=== PATIENT | female | born 1995 | race African-American/Black ===

== ENCOUNTER 2018-01-08 02:22 | Inpatient (IN) ==
[2018-01-08 02:46] LABS: Apearance,Urine Slightly Hazy (Clear); Bacteria,Urine Occasional /HPF (Few); Bilirubin,Urine Negative (Negative); Blood, Urine Small mg/dL (Negative); Glucose,Urine (UA) Negative (Negative); Ketones,Urine 20 mg/dL (Negative); Mucus,Urine Occasional /LPF (Occasional); Nitrite,Urine Negative (Negative); Protein,Urine Negative; RBC,Urine <1 /HPF (0-4); Squamous Epithelial Cell,Urine Occasional /HPF (0-10); Urine Color Yellow (Yellow); Urine Specific Gravity 1.013 (1.001-1.035); Urine Urobilinogen < 2.0 EU/DL (0.2-1.0); WBC,Urine 2 /HPF (0-6)
[2018-01-08] MEDS ORDERED: MEPERIDINE 50 MG/1 ML VIAL IV PRN (03:59)
[2018-01-08] MEDS ORDERED: ONDANSETRON 4 MG/2 ML VIAL IV PRN (03:59)
[2018-01-08] MEDS ORDERED: LACTATED RINGERS 1,000 ML IV SCH (04:00)
[2018-01-08] MEDS ORDERED: INFLUENZA VIRUS VACCINE 0.5 ML SYRINGE IM ONE (04:09)
[2018-01-08 05:17] LABS: Basophils % 0.1 % (0.0-0.8); Eosinophils % 0.3 % (0.00-10.9); Hematocrit 38.7 VOL% (35.7-47.0); Hemoglobin 12.2 GM/DL (12.0-16.0); Immature Granulocytes % 0.3 %; Immature Granulocytes Absolute 0.02 #; Lymphocytes % 27.7 % (21.3-54.2); Mean Corpuscular HGB Conc 31.5 GM/DL (32-36); Mean Corpuscular Hemoglobin 29 PG (27-34); Mean Corpuscular Volume 92.4 FL (87-102); Monocytes # 0.6 10*3/uL (0.11-0.8); Monocytes % 7.9 % (1.7-12.7); Neutrophils # 4.6 10*3/uL (1.4-7.4); Neutrophils % 63.7 % (38.7-73.9); Platelet Count 121 T/CUMM (130-400); Red Blood Count 4.19 MC/CUMM (3.8-5.5); Red Cell Distribution Width 13.8 % (9.3-17.3); White Blood Count 7.2 T/CUMM (4-12)
[2018-01-08 05:51] LABS: Albumin 2.5 G/DL (3.4-5.0); Bilirubin,Total 0.8 MG/DL (0.2-1.0); Calcium 9.2 MG/DL (8.5-10.1); Osmolality,Calculated 275.4 MOS/KG (273-304); Potassium 3.8 MMOL/L (3.5-5.1)
[2018-01-08] MEDS ORDERED: hydrOXYzine HCL 25 MG/1 ML VIAL IM PRN (06:40)
[2018-01-08] MEDS ORDERED: ePHEDrine 50 MG/ML AMP IV PRN (06:40)
[2018-01-08] MEDS ORDERED: PROMETHAZINE 25 MG/1 ML VIAL IM ONE (06:40)
[2018-01-08] MEDS ORDERED: diphenhydrAMINE 50 MG/1 ML VIAL IV PRN ×2 (06:40)
[2018-01-08] MEDS ORDERED: LACTATED RINGERS 250 ML IV PRN (06:40)
[2018-01-08] MEDS ORDERED: NALOXONE 0.4 MG/ML VIAL IV PRN (06:40)
[2018-01-08] MEDS ORDERED: CITRIC ACID/SODIUM CITRATE 30 ML UDCUP PO ONE (06:43)
[2018-01-08] MEDS ORDERED: FAMOTIDINE 20 MG/2 ML VIAL IV ONE (06:44)
[2018-01-08] MEDS ORDERED: OXYTOCIN/LR 20 UNIT/1,000 ML BAG IV SCH (07:00)
[2018-01-08] MEDS ORDERED: fentaNYL 2 MCG/ROPIV 0.2% EPID 100 ML EPIDURAL SCH (07:00)
[2018-01-08 10:03] LABS: Apearance,Urine CLEAR (Clear); Bilirubin,Urine Negative (Negative); Blood, Urine Negative (Negative); Glucose,Urine (UA) Negative (Negative); Ketones,Urine 20 mg/dL (Negative); Mucus,Urine Many /LPF (Occasional); Nitrite,Urine Negative (Negative); Protein,Urine Negative; RBC,Urine 1 /HPF (0-4); Squamous Epithelial Cell,Urine Occasional /HPF (0-10); Urine Color Yellow (Yellow); Urine Specific Gravity 1.017 (1.001-1.035); Urine Urobilinogen < 2.0 EU/DL (0.2-1.0); WBC,Urine 2 /HPF (0-6)
[2018-01-08] MEDS ORDERED: OXYTOCIN/LR 0 UNIT/0 ML BAG IV ONE (10:36)
[2018-01-08] MEDS ORDERED: METHYLERGONOVINE 0.2 MG/1 ML AMP ONE (10:36)
[2018-01-08] MEDS ORDERED: miSOPROStol 200 MCG TABLET ONE (10:36)
[2018-01-08] MEDS ORDERED: TRANEXAMIC ACID 1,000 MG/10 ML VIAL ONE (10:36)
[2018-01-08] MEDS ORDERED: CARBOPROST TROMETHAMINE 250 MCG/ML AMP IM ONE (10:37)
[2018-01-08] MEDS ORDERED: ACETAMINOPHEN/CODEINE 300-30 MG TABLET PO PRN (13:25)
[2018-01-08] MEDS ORDERED: DIPH/TET/ACEL PERT BOOSTER VACCINE 0.5 ML VIAL IM ONE (13:25)
[2018-01-08] MEDS ORDERED: BENZOCAINE 20%/MENTHOL 0.5% SPRAY 56 GM CAN TOP PRN (13:25)
[2018-01-08] MEDS ORDERED: oxyCODONE/ACETAMINOPHEN 5-325 MG TABLET PO PRN (13:25)
[2018-01-08] MEDS ORDERED: LANOLIN 50% CREAM 0.3 OZ TUBE TOP PRN (13:25)
[2018-01-08] MEDS ORDERED: MEASLES/MUMPS/RUBELLA VACCINE 0.5 ML VIAL SUBCUT ONE (13:25)
[2018-01-08] MEDS ORDERED: WITCH HAZEL PADS 100/JAR TOP PRN (13:25)
[2018-01-08] MEDS ORDERED: HYDROCORTISONE 2.5% RECTAL CREAM 30 GM TUBE TOP PRN (13:25)
[2018-01-08] MEDS ORDERED: RHO(D) IMMUNE GLOBULIN 300 MCG SYRINGE IM ONE (13:25)
[2018-01-08] MEDS ORDERED: ACETAMINOPHEN 325 MG TABLET PO PRN (13:25)
[2018-01-08] MEDS ORDERED: BISACODYL 10 MG SUPP RECTAL PRN (13:25)
[2018-01-08] MEDS: oxyCODONE/ACETAMINOPHEN 5-325 MG TABLET PO PRN (15:08)
[2018-01-08] MEDS: IBUPROFEN 800 MG TABLET PO PRN (19:37)
[2018-01-08] MEDS: DOCUSATE SODIUM 100 MG CAPSULE PO SCH (22:02)
[2018-01-09] MEDS: oxyCODONE/ACETAMINOPHEN 5-325 MG TABLET PO PRN ×2 (03:42→21:19)
[2018-01-09 05:38] LABS: Basophils % 0.2 % (0.0-0.8); Eosinophils # 0.1 10*3/uL (0.0-0.87); Eosinophils % 1.3 % (0.00-10.9); Hematocrit 36.2 VOL% (35.7-47.0); Hemoglobin 11.5 GM/DL (12.0-16.0); Immature Granulocytes % 0.5 %; Immature Granulocytes Absolute 0.04 #; Lymphocytes # 2.6 10*3/uL (1.4-4.0); Lymphocytes % 31.3 % (21.3-54.2); Mean Corpuscular HGB Conc 31.8 GM/DL (32-36); Mean Corpuscular Hemoglobin 29 PG (27-34); Mean Corpuscular Volume 92.1 FL (87-102); Mean Platelet Volume 13.2 FL (9.6-12.0); Monocytes # 0.6 10*3/uL (0.11-0.8); Monocytes % 7.7 % (1.7-12.7); Neutrophils # 4.9 10*3/uL (1.4-7.4); Platelet Count 120 T/CUMM (130-400); Red Blood Count 3.93 MC/CUMM (3.8-5.5); Red Cell Distribution Width 13.7 % (9.3-17.3); White Blood Count 8.3 T/CUMM (4-12)
[2018-01-09] MEDS: IBUPROFEN 800 MG TABLET PO PRN ×2 (08:47→15:06)
[2018-01-09] MEDS: DOCUSATE SODIUM 100 MG CAPSULE PO SCH ×2 (08:47→21:20)
[2018-01-10] MEDS: IBUPROFEN 800 MG TABLET PO PRN (06:21)
[2018-01-10 07:38] VITALS: BP 127/74
[2018-01-10] MEDS: DOCUSATE SODIUM 100 MG CAPSULE PO SCH (09:08)
== END 2018-01-10 13:20 | disposition home or self-care (01) | DRG 560 ==
LOC: N.LDOUT 02:22 → N.LD 02:24 → N.OB 13:00
PROVIDERS: ADMIT Obstetrics & Gynecology; ATTEND Obstetrics & Gynecology

== ENCOUNTER 2018-08-05 09:58 | Inpatient (IN) ==
[2018-08-05 13:46] LABS: Basophils % 0.2 % (0.0-0.8); Eosinophils % 0.3 % (0.00-10.9); Hematocrit 37.6 VOL% (35.7-47.0); Hemoglobin 11.9 GM/DL (12.0-16.0); Immature Granulocytes % 0.5 %; Immature Granulocytes Absolute 0.06 #; Lymphocytes # 1.4 10*3/uL (1.4-4.0); Lymphocytes % 11.9 % (21.3-54.2); Mean Corpuscular HGB Conc 31.6 GM/DL (32-36); Mean Corpuscular Volume 91.7 FL (87-102); Mean Platelet Volume 10.8 FL (9.6-12.0); Monocytes % 9.1 % (1.7-12.7); Platelet Count 207 T/CUMM (130-400); Red Cell Distribution Width 12.1 % (9.3-17.3); White Blood Count 11.7 T/CUMM (4-12)
[2018-08-05 14:05] LABS: Calcium 9.3 MG/DL (8.5-10.1); Osmolality,Calculated 271.7 MOS/KG (273-304)
[2018-08-05] MEDS ORDERED: ONDANSETRON 4 MG/2 ML VIAL IV PRN (14:08)
[2018-08-05] MEDS ORDERED: ACETAMINOPHEN 325 MG TABLET PO PRN (14:08)
[2018-08-05] MEDS ORDERED: BISACODYL 5 MG TABLET PO PRN (14:08)
[2018-08-05] MEDS ORDERED: AZTREONAM 1,000 MG in SYRINGE 1 EACH IV SCH (14:30)
[2018-08-05] MEDS: LACTATED RINGERS 1,000 ML IV SCH ×2 (14:36→20:36)
[2018-08-05] MEDS ORDERED: fentaNYL 100 MCG/2 ML VIAL ONE (17:26)
[2018-08-05] MEDS ORDERED: PROPOFOL 200 MG/20 ML VIAL IV ONE (17:26)
[2018-08-05] MEDS ORDERED: GLYCOPYRROLATE 0.4 MG/2 ML VIAL ONE (17:26)
[2018-08-05] MEDS ORDERED: SEVOFLURANE 1 UNIT/15 MINUTE INH ONE (17:26)
[2018-08-05] MEDS ORDERED: SUCCINYLCHOLINE 200 MG/10 ML VIAL ONE (17:27)
[2018-08-05] MEDS ORDERED: ACETAMINOPHEN 1,000 MG/100 ML VIAL IV ONE (17:27)
[2018-08-05] MEDS ORDERED: ROCURONIUM 100 MG/10 ML VIAL IV ONE (17:27)
[2018-08-05] MEDS: CLINDAMYCIN INJ 600 MG in PREMIX 1 EACH IV SCH (18:47)
[2018-08-05] MEDS: oxyCODONE/ACETAMINOPHEN 5-325 MG TABLET PO PRN (21:04)
[2018-08-06] MEDS: CLINDAMYCIN INJ 600 MG in PREMIX 1 EACH IV SCH ×4 (01:26→19:08)
[2018-08-06] MEDS: LACTATED RINGERS 1,000 ML IV SCH (04:49)
[2018-08-06] MEDS: oxyCODONE/ACETAMINOPHEN 5-325 MG TABLET PO PRN (04:50)
[2018-08-06 05:05] LABS: Basophils % 0.2 % (0.0-0.8); Eosinophils # 0.1 10*3/uL (0.0-0.87); Eosinophils % 0.8 % (0.00-10.9); Hematocrit 34.1 VOL% (35.7-47.0); Hemoglobin 11.1 GM/DL (12.0-16.0); Immature Granulocytes % 0.5 %; Immature Granulocytes Absolute 0.05 #; Lymphocytes # 2.3 10*3/uL (1.4-4.0); Lymphocytes % 21.5 % (21.3-54.2); Mean Corpuscular HGB Conc 32.6 GM/DL (32-36); Mean Corpuscular Volume 90.7 FL (87-102); Platelet Count 198 T/CUMM (130-400); Red Blood Count 3.76 MC/CUMM (3.8-5.5); Red Cell Distribution Width 12.2 % (9.3-17.3); White Blood Count 10.6 T/CUMM (4-12)
[2018-08-06] MEDS: HYDROmorphone 2 MG/1 ML VIAL IV PRN ×3 (07:15→21:31)
[2018-08-06] MEDS: PANTOPRAZOLE 40 MG TABLET PO SCH (08:45)
[2018-08-06] MEDS: LABETALOL 100 MG TABLET PO SCH (08:45)
[2018-08-07] MEDS: CLINDAMYCIN INJ 600 MG in PREMIX 1 EACH IV SCH ×2 (03:28→09:21)
[2018-08-07] MEDS: oxyCODONE/ACETAMINOPHEN 5-325 MG TABLET PO PRN ×2 (06:24→12:16)
[2018-08-07] MEDS: PANTOPRAZOLE 40 MG TABLET PO SCH (09:22)
[2018-08-07] MEDS: LABETALOL 100 MG TABLET PO SCH (09:23)
[2018-08-07 11:00] VITALS: BP 107/53
== END 2018-08-07 14:02 | disposition home or self-care (01) | DRG 832 ==
LOC: N.ED 09:58 → N.3E 14:08
PROVIDERS: ADMIT Surgery; ATTEND Surgery

== ENCOUNTER 2019-01-28 10:42 | Inpatient (IN) ==
[2019-01-28] MEDS ORDERED: ONDANSETRON 4 MG/2 ML VIAL IV PRN ×2 (11:16→21:47)
[2019-01-28] MEDS ORDERED: MEPERIDINE 50 MG/1 ML VIAL IV PRN (11:16)
[2019-01-28] MEDS ORDERED: BUTORPHANOL 2 MG/ML VIAL IV PRN (11:16)
[2019-01-28] MEDS ORDERED: OXYTOCIN/LR 20 UNIT/1,000 ML BAG IV SCH (11:30)
[2019-01-28] MEDS ORDERED: LACTATED RINGERS 1,000 ML IV SCH (11:30)
[2019-01-28 11:43] LABS: Basophils % 0.3 % (0.0-0.8); Eosinophils # 0.1 10*3/uL (0.0-0.87); Eosinophils % 0.8 % (0.00-10.9); Hematocrit 39.3 VOL% (35.7-47.0); Hemoglobin 12.2 GM/DL (12.0-16.0); Immature Granulocytes % 0.4 %; Immature Granulocytes Absolute 0.03 #; Lymphocytes # 2.5 10*3/uL (1.4-4.0); Lymphocytes % 33.3 % (21.3-54.2); Mean Corpuscular Volume 90.6 FL (87-102); Mean Platelet Volume 12.7 FL (9.6-12.0); Monocytes % 7.5 % (1.7-12.7); Neutrophils % 57.7 % (38.7-73.9); Platelet Count 143 T/CUMM (130-400); Red Blood Count 4.34 MC/CUMM (3.8-5.5); Red Cell Distribution Width 13.3 % (9.3-17.3); White Blood Count 7.6 T/CUMM (4-12)
[2019-01-28 11:44] LABS: INR 0.9; PT Patient Result 9.6 SECS (9.6-12.2); Partial Thromboplastin Time 28.8 SECS (20.8-36.0)
[2019-01-28 12:00] LABS: Bilirubin,Direct 0.13 MG/DL (0.0-0.20); Uric Acid 4.3 MG/DL (2.6-6.0)
[2019-01-28 12:04] LABS: Albumin 2.5 G/DL (3.4-5.0); Bilirubin,Total 0.6 MG/DL (0.2-1.0); Calcium 8.7 MG/DL (8.5-10.1); Osmolality,Calculated 272.7 MOS/KG (273-304); Total Protein 7.3 G/DL (6.4-8.3)
[2019-01-28] MEDS ORDERED: ePHEDrine 50 MG/ML AMP IV PRN (12:17)
[2019-01-28] MEDS ORDERED: NALOXONE 0.4 MG/ML VIAL IV PRN (12:17)
[2019-01-28] MEDS ORDERED: diphenhydrAMINE 50 MG/1 ML VIAL IV PRN ×2 (12:17)
[2019-01-28] MEDS ORDERED: LACTATED RINGERS 1,000 ML IV ONE (12:17)
[2019-01-28] MEDS ORDERED: CITRIC ACID/SODIUM CITRATE 30 ML UDCUP PO ONE (12:17)
[2019-01-28] MEDS ORDERED: FAMOTIDINE 20 MG/2 ML VIAL IV ONE (12:17)
[2019-01-28] MEDS ORDERED: fentaNYL 2 MCG/ROPIV 0.2% EPID 100 ML EPIDURAL SCH (12:30)
[2019-01-28 14:30] LABS: Apearance,Urine CLEAR (Clear); Bilirubin,Urine Negative (Negative); Blood, Urine Negative (Negative); Glucose,Urine (UA) Negative (Negative); Ketones,Urine Negative (Negative); Mucus,Urine Few /LPF (Occasional); Nitrite,Urine Negative (Negative); Protein,Urine Negative; RBC,Urine <1 /HPF (0-4); Squamous Epithelial Cell,Urine Occasional /HPF (0-10); Urine Color Yellow (Yellow); Urine Specific Gravity 1.027 (1.001-1.035); WBC,Urine 1 /HPF (0-6)
[2019-01-28] MEDS ORDERED: miSOPROStoL 200 MCG TABLET ONE (16:12)
[2019-01-28] MEDS ORDERED: CARBOPROST TROMETHAMINE 250 MCG/ML AMP IM ONE (16:13)
[2019-01-28 16:54] LABS: Cord Venous Blood HCO3 21.5 MMOL/L; Cord Venous Blood PCO2 45.3 MMHG; Cord Venous Blood PO2 31.2
[2019-01-28] MEDS ORDERED: RHO(D) IMMUNE GLOBULIN 300 MCG SYRINGE IM ONE (20:02)
[2019-01-28] MEDS ORDERED: ACETAMINOPHEN 325 MG TABLET PO PRN (20:02)
[2019-01-28] MEDS ORDERED: DIPH/TET/ACEL PERT BOOSTER VACCINE 0.5 ML VIAL IM ONE (20:02)
[2019-01-28] MEDS ORDERED: BENZOCAINE 20%/MENTHOL 0.5% SPRAY 56 GM CAN TOP PRN (20:02)
[2019-01-28] MEDS ORDERED: LANOLIN 50% CREAM 0.3 OZ TUBE TOP PRN (20:02)
[2019-01-28] MEDS ORDERED: MEASLES/MUMPS/RUBELLA VACCINE 0.5 ML VIAL SUBCUT ONE (20:02)
[2019-01-28] MEDS ORDERED: BISACODYL 10 MG SUPP RECTAL PRN (20:02)
[2019-01-28] MEDS ORDERED: WITCH HAZEL PADS 100/JAR TOP PRN (20:02)
[2019-01-28] MEDS ORDERED: OXYTOCIN/LR 20 UNIT/1,000 ML BAG IV ONE (20:02)
[2019-01-28] MEDS ORDERED: HYDROCORTISONE 2.5% RECTAL CREAM 30 GM TUBE TOP PRN (20:02)
[2019-01-28] MEDS: oxyCODONE/ACETAMINOPHEN 5-325 MG TABLET PO PRN (20:10)
[2019-01-28] MEDS: DOCUSATE SODIUM 100 MG CAPSULE PO SCH (22:36)
[2019-01-28] MEDS: IBUPROFEN 800 MG TABLET PO PRN (22:45)
[2019-01-29] MEDS: oxyCODONE/ACETAMINOPHEN 5-325 MG TABLET PO PRN ×4 (02:00→22:42)
[2019-01-29 05:58] LABS: Basophils % 0.3 % (0.0-0.8); Eosinophils # 0.1 10*3/uL (0.0-0.87); Eosinophils % 0.6 % (0.00-10.9); Hematocrit 38.1 VOL% (35.7-47.0); Hemoglobin 12.2 GM/DL (12.0-16.0); Immature Granulocytes % 0.5 %; Immature Granulocytes Absolute 0.06 #; Lymphocytes # 2.1 10*3/uL (1.4-4.0); Lymphocytes % 16.8 % (21.3-54.2); Mean Corpuscular Volume 89.6 FL (87-102); Monocytes % 6.2 % (1.7-12.7); Neutrophils % 75.6 % (38.7-73.9); Platelet Count 128 T/CUMM (130-400); Red Blood Count 4.25 MC/CUMM (3.8-5.5); Red Cell Distribution Width 13.3 % (9.3-17.3); White Blood Count 12.6 T/CUMM (4-12)
[2019-01-29] MEDS: DOCUSATE SODIUM 100 MG CAPSULE PO SCH ×3 (07:43→21:31)
[2019-01-29] MEDS: IBUPROFEN 800 MG TABLET PO PRN ×2 (15:41→22:42)
[2019-01-30 07:35] VITALS: BP 97/53
[2019-01-30] MEDS: oxyCODONE/ACETAMINOPHEN 5-325 MG TABLET PO PRN (08:08)
[2019-01-30] MEDS: DOCUSATE SODIUM 100 MG CAPSULE PO SCH (08:09)
[2019-01-30] MEDS ORDERED: INFLUENZA VIRUS VACCINE 0.5 ML SYRINGE IM ONE ×2 (09:00→12:30)
== END 2019-01-30 16:50 | disposition home or self-care (01) | DRG 807 ==
LOC: N.LDOUT 10:42 → N.LD 10:44 → N.OB 21:20
PROVIDERS: ADMIT Obstetrics & Gynecology; ATTEND Obstetrics & Gynecology